=== PATIENT | male | born 1980 | race African-American/Black ===

== ENCOUNTER 2020-01-15 12:03 | Emergency (ER) | payer MEDICAID ==
[~2020-01-15] VITALS: Ht 172.7 cm; Wt 63.5 kg
[2020-01-15 12:19] VITALS: BP 152/72
[2020-01-15] MEDS ORDERED: Gadavist 7.5mMol/7.5ml vial IV PRN (12:30)
[2020-01-15] MEDS ORDERED: Tylenol #3 tab (300mg/30mg) ORAL ONE (12:30)
[2020-01-15] MEDS ORDERED: Ketorolac 30mg Inj IV ONE (12:30)
[2020-01-15] MEDS ORDERED: Omnipaque-300 100ml vial INJ PRN (12:45)
[2020-01-15] MEDS ORDERED: LORazepam 1mg tab ORAL ONE (13:15)
[2020-01-15 13:22] LABS: EOSINOPHILS % (AUTO) 7.8 % (0.0-3.0); HEMATOCRIT 32.3 % (42.0-52.0); HEMOGLOBIN 10.5 G/DL (14.2-18.0); LYMPHOCYTES % (AUTO) 30.6 % (20.0-45.0); MEAN CORPUSCULAR VOLUME 80 FL (80-99); MONOCYTES % (AUTO) 11.5 % (1.0-10.0); NEUTROPHILS % (AUTO) 49.2 % (45.0-75.0); PLATELET COUNT 309 K/UL (150-450); RED BLOOD COUNT 4.04 M/UL (4.70-6.10); RED CELL DISTRIBUTION WIDTH 13.1 % (11.6-14.8); WHITE BLOOD COUNT 6.5 K/UL (4.8-10.8)
[2020-01-15 13:23] LABS: ANION GAP 8 mmol/L (5-15); BLOOD UREA NITROGEN 12 mg/dL (7-18); CARBON DIOXIDE 30 MMOL/L (21-32); CHLORIDE 105 MMOL/L (98-107); CREATININE 0.8 MG/DL (0.55-1.30); POTASSIUM 3.8 MMOL/L (3.5-5.1); SODIUM 143 MMOL/L (136-145)
[2020-01-15 13:24] LABS: INR 0.9 (0.9-1.1)
[2020-01-15 13:30] LABS: ALANINE AMINOTRANSFERASE 24 U/L (12-78); ALBUMIN 3.1 G/DL (3.4-5.0); ALBUMIN/GLOBULIN RATIO 0.8 (1.0-2.7); ALKALINE PHOSPHATASE 179 U/L (46-116); ASPARTATE AMINO TRANSFERASE 33 U/L (15-37); BILIRUBIN,TOTAL 0.2 MG/DL (0.2-1.0)
--- NOTE | 2020-01-15 14:45 | Diagnostic Imaging Report ---
Indication: Trauma, pain Technique: Sagittal T1 and T2 fast spin echo, sagittal STIR, axial T1 and T2 fast spin-echo images of the lumbar spine Comparison: Bony alignment is normal. Vertebral marrow signal is normal. Vertebral body heights are preserved. The disc spaces are preserved. There is minimal circumferential annular bulge at L4-5, which does not significantly compromise the spinal canal. There may be minimal compromise of the neural foramina. At the other levels, no significant disc bulge or protrusion, spinal stenosis, or neural foraminal stenosis. The included extra spinal soft tissues are unremarkable. Findings: No acute abnormality Minimal circumferential bulge at L4-5. No evidence of significant neural impingement Impression:
--- NOTE | 2020-01-15 15:05 | Diagnostic Imaging Report ---
Indication: Trauma, pain, history of left femur surgery Technique: IV administration nonionic contrast Spiral acquisitions obtained through the left femur Multiplanar reconstructions were generated. Total dose length product 173 mGycm. CTDIvol(s) 3 mGy. Radiation dose was minimized using automated exposure control Comparison: none Findings: Surgical hardware is seen reducing a left femoral neck fracture. There is a persistent fracture line through the femoral neck there is also a fracture line extending through the intertrochanteric region, best appreciated on the axial images. There is evidence of prior hardware removal, as numerous screw holes are seen within the femoral head. There are also old screw holes seen along the more distal femoral shaft. 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 The hardware itself appears to be intact. The femur is intact below the hardware. The knee joint appears unremarkable. The arteries appear to be patent and intact. Exam was scanned in arterial phase so there is no venous opacification. No definite fluid collections to suggest abscess. No definite joint effusion. A lateral surgical scar is noted. No definite contusion. The visualized pelvic viscera are unremarkable. Impression: Evidence of prior surgical repair of left femoral neck and intertrochanteric fracture; empty screw holes extend suggest that there has been also revision surgery. Fracture lines are still present. Uncertain as to whether this represents a recently repaired original injury, delayed union, or an acute reinjury. Correlate with clinical history and findings. Note that the hardware appears to be intact No evidence of joint effusion or significant soft tissue abnormality. Fairly extensive heterotopic new bone is seen surrounding the injury The CT scanner at [facility] is accredited by the [employer] and the scans are performed using protocols designed to limit radiation exposure to as low as reasonably achievable to attain images of sufficient resolution adequate for diagnostic evaluation.
--- NOTE | 2020-01-15 15:21 | Emergency Room Report ---
History of Present Illness General Chief Complaint: Pain Source: EMS Present Illness HPI 39-year-old male with no significant past medical history other than left femur fracture status post surgery here ambulating to the ED with his wheelchair brought in by paramedics from the streets complaining of worsening pain left femur after a fall that happened earlier today. Reports that he landed on the side of his operation that was done at [facility] 3 months ago. Patient reports that he never followed up with surgeon as it is hard for him to get all the way to [facility]. Reports that after he fell today he started feeling numbness below the site of injury. Denies any tingling, low back pain, saddle paresthesia, urinary or bowel incontinence. Denies chest pain shortness of breath, cough or congestion at this time. Has not taken medication for symptom relief. Rates the pain 10 out of 10 without radiation Allergies: Coded Allergies: No Known Allergies (Unverified , 01/15/20) COVID-19 Screening Contact w/high risk pt: No Recent Travel to affected area: No Experienced COVID-19 symptoms?: No Patient History Past Medical History: see triage record Past Surgical History: none Pertinent Family History: none Reviewed Nursing Documentation: PMH: Agreed; PSxH: Agreed Nursing Documentation-PMH Past Medical History: No History, Except For Hx Asthma: Yes Review of Systems All Other Systems: negative except mentioned in HPI Physical Exam Vital Signs Date Time Temp Pulse Resp B/P (MAP) Pulse Ox O2 Delivery O2 Flow Rate FiO2 01/15/20 11:59 98.8 86 18 160/80 (106) 97 Room Air Sp02 EP Interpretation: reviewed, normal General Appearance: no apparent distress, alert, GCS 15, non-toxic Head: normocephalic, atraumatic Eyes: bilateral eye normal inspection, bilateral eye PERRL ENT: hearing grossly normal, normal pharynx, no angioedema, normal voice Neck: full range of motion, supple/symm/no masses Respiratory: chest non-tender, lungs clear, normal breath sounds, no rhonchi, no wheezing, speaking full sentences Cardiovascular #1: regular rate, rhythm, no edema, no murmur Cardiovascular #2: 2+ femoral (R), 2+ femoral (L), 2+ dorsalis pedis (R), 2+ dorsalis pedis (L) Gastrointestinal: normal bowel sounds, non tender, soft, non-distended, no guarding, no rebound Rectal: deferred Genitourinary: no CVA tenderness Musculoskeletal: back normal, no calf tenderness, pelvis stable, swelling - left upper thigh, other - non infected surgical site left anterior thigh Neurologic: alert, motor strength/tone normal, oriented x3, sensory intact, responsive, speech normal Psychiatric: judgement/insight normal, memory normal, mood/affect normal, no suicidal/homicidal ideation Skin: no rash Lymphatic: no adenopathy Medical Decision Making PA Attestation All my diagnosis and treatment plans were reviewed ad discussed with my supervising physician Dr. Chen Diagnostic Impression: Primary Impression: Status post fracture of femur Additional Impression: Bulging lumbar disc ER Course 39-year-old male with no significant past medical history other than left femur fracture status post surgery here ambulating to the ED with his wheelchair brought in by paramedics from the streets complaining of worsening pain left femur after a fall that happened earlier today. Reports that he landed on the side of his operation that was done at [facility] 3 months ago. Patient reports that he never followed up with surgeon as it is hard for him to get all the way to [facility]. Reports that after he fell today he started feeling numbness below the site of injury. Denies any tingling, low back pain, saddle paresthesia, urinary or bowel incontinence. Denies chest pain shortness of breath, cough or congestion at this time. Has not taken medication for symptom relief. Rates the pain 10 out of 10 without radiation Ddx considered but are not limited to: Status post fractured femur within normal limits, fracture of left femur, femoral nerve palsy, cauda equina syndrome status post fracture of femur, Vital signs: are WNL, pt. is afebrile H&PE are most consistent with: Status post fracture of femur after surgery, bulging lumbar disc at L4-L5 ORDERS: MRI L spine no contrast, CT left femur with contrast, CBC< CMP, UA, PT, PTT, Robaxin, Ibuprofen, lidocaine patch ED INTERVENTIONS: tylenol #3 P.O., toradol 15mg IV DISCHARGE: At this time pt. is stable for d/c to home. Will provide printed patient care instructions, and any necessary prescriptions. Care plan and follow up instructions have been discussed with the patient prior to discharge. The orthopedic surgeon Dr. Camacho was consulted and he recommended patient follow-up with his original surgeon at this time no new signs of injury noted. Patient to follow-up primary doctor, if worsening symptom return to emergency room. Patient was evaluated in the context of the global COVID-19 pandemic, which necessitated consideration that the patient might be at risk for infection with the SARS-COV-2 virus that causes COVID-19. Institutional protocols and algorithms that pertain to the evaluation of patients at risk for COVID-19 are in a state of rapid change based on information relieved by multiple regulatory bodies including the CDC and the federal and state organizations. These policies and algorithms were followed during the patient's care in the ED. CT/MRI/US Diagnostic Results CT/MRI/US Diagnostic Results #1: Imaging Test Ordered: MRI L spine Impression Bulging disc at L4-L5 otherwise normal CT/MRI/US Diagnostic Results #2: Imaging Test Ordered: CT left femur with contrast Impression Fracture line still present however repair is intact. Last Vital Signs Date Time Temp Pulse Resp B/P (MAP) Pulse Ox O2 Delivery O2 Flow Rate FiO2 01/15/20 12:19 98.8 87 19 152/72 99 Room Air Disposition: HOME, SELF-CARE Condition: Stable Scripts Acetaminophen* (TYLENOL EXTRA STRENGTH*) 500 Mg Tablet 500 MG ORAL Q8H PRN for Prn Headache/Temp > 101, #30 TAB 0 Refills Prov: Ynes Dukes 01/15/20 Ibuprofen (Ibu) 800 Mg Tablet 800 MG PO TID, #30 TAB Prov: Ynes Dukes 01/15/20 Patient Instructions: Leg Cramps Additional Instructions: Follow-up with your surgeon, take medication as directed, if worsening symptoms return to the emergency room Ynes Dukes Jan 15, 2020 15:21
[2020-01-15] MEDS ORDERED: IBU800 MG PO (16:13)
[2020-01-15] MEDS ORDERED: TYLENOL EXTRA500 MG ORAL (16:13)
[2020-01-15 16:48] VITALS: BP 147/70
== END 2020-01-15 16:51 | disposition home or self-care (01) ==
LOC: EDBD 12:03 → EMR 12:39
DX: S72.092D Other fracture of head and neck of left femur, subsequent encounter for closed fracture with routine healing (principal); X58.XXXD Exposure to other specified factors, subsequent encounter; M51.26 Other intervertebral disc displacement, lumbar region; G89.18 Other acute postprocedural pain
CPT/HCPCS: 36415; 72148; 73702; 80053; 85025; 85610; 85730; 96374; J1885; Q9967; Z7502; 99284